=== PATIENT | male | born 1955 | race Caucasian/White ===

== ENCOUNTER 2018-03-06 11:39 | Day surgery (SDC) | payer BC ==
[2018-03-06] MEDS ORDERED: Lactated Ringers 1,000 ML IV SCH (12:00)
[2018-03-06] MEDS ORDERED: Sodium Chloride 0.9% 10 ML Syringe FLUSH PRN (12:00)
[2018-03-06] MEDS ORDERED: Propofol 200 MG/20 ML SDV ONE ×2 (13:15→13:17)
[2018-03-06] MEDS ORDERED: Midazolam 1 MG/ML 2 ML SDV ONE ×2 (13:15→13:17)
[2018-03-06] MEDS ORDERED: fentaNYL 100 MCG/2 ML SDV ONE ×2 (13:15→13:17)
--- NOTE | 2018-03-06 13:25 | PCM.PN ---
- General Info Date of Service: 03/06/18 - Review of Systems Systems Review Comment:: 62-year-old male with a history of colon polyps here for colonoscopy. He is medically stable to proceed today. His recent history and physical is reviewed and no significant changes are noted. I discussed the proposed colonoscopy with the patient. Risks such as but not limited to bleeding and GI injury or reviewed. He appears to understand and agrees to proceed. - Patient Data Vitals - Most Recent: Last Vital Signs Temp 97.7 F 03/06/18 12:09 Pulse 79 03/06/18 12:09 Resp 20 03/06/18 12:09 BP 149/79 H 03/06/18 12:09 Pulse Ox 98 03/06/18 12:09 Weight - Most Recent: 86.183 kg Med Orders - Current: Current Medications Lactated Ringer's (Ringers, Lactated) 1,000 mls @ 125 mls/hr IV ASDIRECTED MOSHE Last Admin: 03/06/18 12:34 Dose: 125 mls/hr Sodium Chloride (Saline Flush) 10 ml FLUSH ASDIRECTED PRN PRN Reason: Keep Vein Open Discontinued Medications Fentanyl (Sublimaze) Confirm Administered Dose 100 mcg .ROUTE .STK-MED ONE Stop: 03/06/18 13:16 Midazolam HCl (Versed 1 Mg/Ml) Confirm Administered Dose 2 mg .ROUTE .STK-MED ONE Stop: 03/06/18 13:16 Propofol (Diprivan 20 Ml) Confirm Administered Dose 200 mg .ROUTE .STK-MED ONE Stop: 03/06/18 13:16 - Problem List Review Problem List Initiated/Reviewed/Updated: Yes - My Orders Last 24 Hours: My Active Orders 03/06/18 12:00 Patient Status [ADT] Routine Peripheral IV Care [RC] . DIRECTED Verify Patient Consent Obtain [RC] ASDIRECTED Lactated Ringers [Ringers, Lactated] 1,000 ml IV ASDIRECTED Sodium Chloride 0.9% [Saline Flush] 10 ml FLUSH ASDIRECTED PRN Peripheral IV Insertion Adult [OM.PC] Routine 03/06/18 Breakfast Nothing Per Oral Diet [DIET] - Assessment Assessment:: history of colon polyps - Plan Plan:: colonoscopy
--- NOTE | 2018-03-06 14:02 | PCM.OPNOTE ---
- General Post-Op/Procedure Note Date of Surgery/Procedure: 03/06/18 Operative Procedure(s): Colonoscopy with polypectomy Findings: Multiple small colon polyps Moderate Sigmoid Diverticulosis Pre Op Diagnosis: History of colon polyps Post-Op Diagnosis: Colon Polyps. Diverticulosis of Sigmoid Colon Anesthesia Technique: MAC Primary Surgeon: Silvio Ureña Pathology: Colon Polyps Output, Urine Amount: 0 EBL in mLs: 0 Complications: None Condition: Good Free Text/Narrative:: Intake & Output 03/05/18 03/06/18 03/06/18 22:59 06:59 14:59 Intake Total 600 Balance 600
[2018-03-06 15:22] VITALS: BP 151/74
--- NOTE | 2018-03-07 09:42 | OR ---
Date of Procedure: 03/06/2018 REFERRING PROVIDER: Malvin Jarvis PA-C PREOPERATIVE DIAGNOSIS: History of colon polyps. POSTOPERATIVE DIAGNOSES: Colon polyps and diverticulosis of the sigmoid colon. OPERATIONS PERFORMED: Colonoscopy with polypectomy. INDICATIONS FOR SURGERY: This 62-year-old male has a known history of colon polyps. He comes today for surveillance colonoscopy. FINDINGS: Three polyps were noted on today's exam. There was a 4-mm polyp in the sigmoid colon, 15 cm from the anal verge; a 5-mm polyp in the sigmoid colon, 30 cm from the anal verge; a 7-mm polyp in the ascending colon. All of these polyps were sessile in configuration. The patient also has a moderate degree of sigmoid diverticulosis. This does not appear to be acutely inflamed, otherwise complicated. The colon otherwise appeared normal. DESCRIPTION OF PROCEDURE: The patient was taken to the operating room. He was given intravenous sedation, and with him in the left lateral decubitus position, digital rectal exam was performed showing no rectal masses. The Olympus colonoscope was inserted into the rectum. Retroflexed examination of the rectal canal was performed. The scope was then carefully advanced under direct visualization through the entire length of the colon until the cecum was reached. During insertion of the scope, the above-described 3 polyps are identified, and as encountered, there were each in turn removed with a cautery snare and retrieved. The scope was advanced to the cecum and cecal acquisition was confirmed by noting the normal internal cecal anatomy including the appendiceal orifice and ileocecal valve. The light was also noted to transilluminate the abdominal wall in the right lower quadrant. After examining the cecum, the scope was slowly withdrawn sequentially re-examining the colonic segments until the entire colon and rectum had been fully examined. The scope was removed and the patient was taken from the operating room in satisfactory condition. ESTIMATED BLOOD LOSS: Zero. COMPLICATIONS: None. PROGNOSIS: Good. KENNETH Ureña MD /[id number]
== END 2018-03-06 15:07 | disposition home or self-care (01) ==
LOC: LL.SDS 11:39
PROVIDERS: ATTEND Surgery
DX: Z12.11 Encounter for screening for malignant neoplasm of colon (principal); D12.2 Benign neoplasm of ascending colon; D12.5 Benign neoplasm of sigmoid colon; K63.5 Polyp of colon; K57.30 Diverticulosis of large intestine without perforation or abscess without bleeding; J45.909 Unspecified asthma, uncomplicated; E78.5 Hyperlipidemia, unspecified; N52.9 Male erectile dysfunction, unspecified; I10 Essential (primary) hypertension; I27.20 Pulmonary hypertension, unspecified; E78.00 Pure hypercholesterolemia, unspecified; E03.9 Hypothyroidism, unspecified; M19.90 Unspecified osteoarthritis, unspecified site; Z79.899 Other long term (current) drug therapy; Z88.1 Allergy status to other antibiotic agents; Z88.8 Allergy status to other drugs, medicaments and biological substances; Z86.010 Personal history of colon polyps; Z87.891 Personal history of nicotine dependence
CPT/HCPCS: J2250; J2704; J3010; J7120

== ENCOUNTER 2021-04-06 07:55 | Day surgery (SDC) | payer BC ==
[2021-04-06] MEDS ORDERED: Sodium Chloride 0.9% 10 ML Syringe FLUSH PRN (08:00)
[2021-04-06] MEDS ORDERED: Lactated Ringers 1,000 ML IV SCH (08:00)
[2021-04-06] MEDS ORDERED: Propofol 200 MG/20 ML SDV ONE ×2 (08:39→09:26)
[2021-04-06] MEDS ORDERED: Midazolam 1 MG/ML 2 ML SDV ONE ×3 (08:39→09:57)
--- NOTE | 2021-04-06 09:49 | PCM.HPR ---
H & P Addendum review - H & P Addendum Review Date of Original H & P: 03/15/21 Date Reviewed: 04/06/21 Time Reviewed: 09:20 Patient was Examined: No Changes
--- NOTE | 2021-04-06 09:50 | PCM.OPNOTE ---
- General Post-Op/Procedure Note Date of Surgery/Procedure: 04/06/21 Operative Procedure(s): Colonoscopy Findings: sig tics Pre Op Diagnosis: Hx Polyps Post-Op Diagnosis: Same Anesthesia Technique: MAC Primary Surgeon: Luis Carlos Malhotra Anesthesia Provider: Arminda Mccracken Complications: None Condition: Good
[2021-04-06 12:50] VITALS: BP 120/75; PULSE 78
--- NOTE | 2021-04-07 10:57 | OR ---
Date of Procedure: PREOPERATIVE DIAGNOSES: 1. History of colon polyps. 2. Sigmoid diverticulosis. POSTOPERATIVE DIAGNOSIS: Sigmoid diverticulosis. PROCEDURE: Colonoscopy. ANESTHESIA: IV sedation. PROCEDURE IN DETAIL: Patient was brought to the procedure room where he was placed on his left side and IV sedation administered. Digital rectal exam was performed, which was normal. Colonoscope was inserted and advanced to the level of the cecum without difficulty. Cecal position was confirmed by identifying the appendiceal lumen and ileocecal valve. Prep was good and surfaces were well visualized. Upon withdrawing the scope, the ascending, transverse, and descending colon were normal in appearance. Sigmoid colon had multiple diverticula present. Rectum was normal and retroflexion was normal. Air was removed and the scope withdrawn. Patient tolerated the procedure well and returned to recovery in stable condition. Recommend surveillance colonoscopy again in 5 years. KENNETH CONNER MD /[id number]
== END 2021-04-06 11:10 | disposition home or self-care (01) ==
LOC: LL.SDS 07:55
PROVIDERS: ATTEND Surgery
DX: D12.6 Benign neoplasm of colon, unspecified (principal); K57.30 Diverticulosis of large intestine without perforation or abscess without bleeding; J45.909 Unspecified asthma, uncomplicated; E11.9 Type 2 diabetes mellitus without complications; I10 Essential (primary) hypertension; E78.00 Pure hypercholesterolemia, unspecified; E03.9 Hypothyroidism, unspecified; F17.210 Nicotine dependence, cigarettes, uncomplicated; L30.9 Dermatitis, unspecified; J44.9 Chronic obstructive pulmonary disease, unspecified; Z86.010 Personal history of colon polyps; Z90.49 Acquired absence of other specified parts of digestive tract; Z98.890 Other specified postprocedural states; Z79.899 Other long term (current) drug therapy; Z88.8 Allergy status to other drugs, medicaments and biological substances; Z88.1 Allergy status to other antibiotic agents; Z79.890 Hormone replacement therapy
CPT/HCPCS: 00812; 82947; J2250; J2704; J7120

== ENCOUNTER 2021-08-01 13:08 | Emergency (ER) | payer BC ==
[2021-08-01 14:28] LABS: CORONAVIRUS COVID-19 NAA NEGATIVE (NEGATIVE); RESPIRATORY SYNCYTIAL VIR NAA NEGATIVE (NEGATIVE)
[2021-08-01 14:32] LABS: ANION GAP 12.5 meq/L (7-15); CHLORIDE,CL 90 mmol/L (98-107); SODIUM,NA 127 mmol/L (136-145)
[2021-08-01 15:30] LABS: BARBITURATE SCREEN,URINE NEGATIVE (NEGATIVE); BENZODIAZEPINES SCREEN,URINE NEGATIVE (NEGATIVE); EDDP,URINE SCREEN NEGATIVE (NEGATIVE); TCA SCREEN,URINE NEGATIVE (NEGATIVE); THC SCREEN,URINE 50 NG/ML POSITIVE (NEGATIVE)
[2021-08-01 15:39] LABS: BUPRENORPHINE SCREEN,URINE NEGATIVE (NEGATIVE)
[2021-08-01 16:06] VITALS: BP 147/70; PULSE 86
== END 2021-08-01 16:35 ==
LOC: LL.ED 13:08
DX: E87.1 Hypo-osmolality and hyponatremia (principal); E03.9 Hypothyroidism, unspecified; R47.89 Other speech disturbances; E78.00 Pure hypercholesterolemia, unspecified; I10 Essential (primary) hypertension; J44.9 Chronic obstructive pulmonary disease, unspecified; E11.9 Type 2 diabetes mellitus without complications; F17.210 Nicotine dependence, cigarettes, uncomplicated; Z91.048 Other nonmedicinal substance allergy status; Z88.8 Allergy status to other drugs, medicaments and biological substances; Z88.1 Allergy status to other antibiotic agents; Z79.82 Long term (current) use of aspirin; Z79.899 Other long term (current) drug therapy; Z20.822 Contact with and (suspected) exposure to COVID-19
CPT/HCPCS: 0241U; 36415; 70450; 71046; 80053; 80305-QW; 80307; 81001; 82140; 83605; 83735; 83880; 84443; 84484; 85025; 85379; 93005; 99285-25

== ENCOUNTER 2022-07-02 09:13 | Inpatient (IN) | payer BC, MEDICARE ==
[2022-07-02 10:21] LABS: CHLORIDE,CL 94 mmol/L (98-107); SODIUM,NA 128 mmol/L (136-145)
[2022-07-02 10:23] LABS: ESTIMATED GFR 102 mL/min (>=60)
[2022-07-02] MEDS: HYDROmorphone 0.5 MG/0.5 ML Syringe IVPUSH PRN ×3 (10:36→21:17)
[2022-07-02] MEDS ORDERED: Albuterol 6.7 GM Inhaler INH PRN (11:23)
[2022-07-02] MEDS ORDERED: Albuterol 0.083% 2.5 MG/3 ML Neb Soln INH PRN (11:23)
[2022-07-02] MEDS ORDERED: BETAMETHASONE DIPROPIONATE TOP PRN (11:25)
[2022-07-02] MEDS ORDERED: Clotrimazole 1% Crm 30 GM Tube TOP PRN (11:25)
[2022-07-02] MEDS: Sodium Chloride 0.9% 10 ML Syringe FLUSH PRN ×2 (13:03→14:33)
[2022-07-02] MEDS: Nicotine 14 MG/24 Hr Patch TRDERM SCH (13:03)
[2022-07-02] MEDS: Apixaban 5 MG Tab PO SCH (18:21)
[2022-07-02] MEDS: Montelukast 10 MG Tab PO SCH (21:11)
[2022-07-02] MEDS: atorvaSTATin 10 MG Tab PO SCH (21:11)
[2022-07-02] MEDS: Formoterol/Mometasone 100-5 MCG 8.8 GM Inhaler IH SCH (21:12)
[2022-07-03] MEDS ORDERED: LORazepam 2 MG/ML SDV IVPUSH ONE (06:03)
[2022-07-03] MEDS: amLODIPine 5 MG Tab PO SCH (08:28)
[2022-07-03] MEDS: Apixaban 5 MG Tab PO SCH ×2 (08:28→17:30)
[2022-07-03] MEDS: Lisinopril 20 MG Tab PO SCH (08:28)
[2022-07-03] MEDS: Folic Acid 1 MG Tab PO SCH (08:28)
[2022-07-03] MEDS: Cholecalciferol (Vitamin D3) 25 MCG Tab PO SCH (08:29)
[2022-07-03] MEDS: Multivitamin Tab PO SCH (08:29)
[2022-07-03] MEDS: Nicotine 14 MG/24 Hr Patch TRDERM SCH (08:30)
[2022-07-03] MEDS: Formoterol/Mometasone 100-5 MCG 8.8 GM Inhaler IH SCH ×2 (08:33→20:00)
[2022-07-03] MEDS ORDERED: GUSELKUMAB 100 MG/ML SUBCUT SCH (11:30)
[2022-07-03] MEDS: atorvaSTATin 10 MG Tab PO SCH (19:58)
[2022-07-03] MEDS: Montelukast 10 MG Tab PO SCH (19:58)
[2022-07-03] MEDS ORDERED: diphenhydrAMINE 50 MG/ML SDV IVPUSH PRN (20:52)
[2022-07-03] MEDS: HYDROmorphone 0.5 MG/0.5 ML Syringe IVPUSH PRN (21:06)
[2022-07-03] MEDS ORDERED: Nicotine 14 MG/24 Hr Patch TRDERM ONE (22:01)
[2022-07-04] MEDS ORDERED: methylPREDNISolone Sodium Succinate 125 MG/2 ML SDV IVPUSH ONE (00:11)
[2022-07-04] MEDS: Acetaminophen/HYDROcodone 325-10 MG Tab PO PRN ×2 (00:19→17:56)
[2022-07-04] MEDS: hydrOXYzine Pamoate 25 MG Cap PO PRN (04:33)
[2022-07-04] MEDS: HYDROmorphone 0.5 MG/0.5 ML Syringe IVPUSH PRN (04:34)
[2022-07-04] MEDS: Apixaban 5 MG Tab PO SCH ×2 (09:33→17:57)
[2022-07-04] MEDS: Multivitamin Tab PO SCH (09:33)
[2022-07-04] MEDS: Cholecalciferol (Vitamin D3) 25 MCG Tab PO SCH (09:34)
[2022-07-04] MEDS: Folic Acid 1 MG Tab PO SCH (09:34)
[2022-07-04] MEDS: Nicotine 14 MG/24 Hr Patch TRDERM SCH (09:35)
[2022-07-04] MEDS: Formoterol/Mometasone 100-5 MCG 8.8 GM Inhaler IH SCH ×3 (09:35→19:23)
[2022-07-04] MEDS: Lisinopril 20 MG Tab PO SCH (09:39)
[2022-07-04] MEDS: amLODIPine 5 MG Tab PO SCH (09:39)
[2022-07-04] MEDS ORDERED: Sodium Chloride 0.9% 1,000 ML IV SCH (15:30)
[2022-07-04] MEDS ORDERED: cefTRIAXone 1 GM in Sodium Chloride 0.9% 100 ML IV SCH (16:00)
[2022-07-04] MEDS: Sodium Chloride 0.9% 10 ML Syringe FLUSH PRN (16:28)
[2022-07-04] MEDS: Montelukast 10 MG Tab PO SCH (19:19)
[2022-07-04] MEDS: atorvaSTATin 10 MG Tab PO SCH (19:19)
[2022-07-05] MEDS: hydrOXYzine Pamoate 25 MG Cap PO PRN (01:39)
[2022-07-05] MEDS ORDERED: Gabapentin 300 MG Cap PO SCH ×2 (03:52→08:00)
[2022-07-05] MEDS: Acetaminophen/HYDROcodone 325-10 MG Tab PO PRN ×2 (06:03)
[2022-07-05] MEDS ORDERED: hydrOXYzine Pamoate 25 MG Cap PO SCH (08:00)
[2022-07-05 08:02] VITALS: BP 144/71; PULSE 72
[2022-07-05] MEDS: Multivitamin Tab PO SCH (08:04)
[2022-07-05] MEDS: Cholecalciferol (Vitamin D3) 25 MCG Tab PO SCH (08:05)
[2022-07-05] MEDS: amLODIPine 5 MG Tab PO SCH (08:05)
[2022-07-05] MEDS: Gabapentin 300 MG Cap PO SCH ×2 (08:05→12:49)
[2022-07-05] MEDS: Folic Acid 1 MG Tab PO SCH (08:06)
[2022-07-05] MEDS: Apixaban 5 MG Tab PO SCH (08:07)
[2022-07-05] MEDS: Formoterol/Mometasone 100-5 MCG 8.8 GM Inhaler IH SCH (08:07)
[2022-07-05] MEDS: Nicotine 14 MG/24 Hr Patch TRDERM SCH (08:08)
[2022-07-05] MEDS: Lisinopril 20 MG Tab PO SCH (08:12)
[2022-07-05] MEDS ORDERED: cefTRIAXone 1 GM in Sodium Chloride 0.9% 100 ML IV SCH (10:30)
== END 2022-07-05 14:05 | disposition home or self-care (01) | DRG 383 ==
LOC: LL.ED 09:13 → LL.MS 10:33
PROVIDERS: ADMIT Emergency Medicine; ATTEND Family Medicine
DX: L03.116 Cellulitis of left lower limb (principal); L03.031 Cellulitis of right toe; L03.032 Cellulitis of left toe; L03.115 Cellulitis of right lower limb; H54.7 Unspecified visual loss; H91.93 Unspecified hearing loss, bilateral; E78.00 Pure hypercholesterolemia, unspecified; K57.90 Diverticulosis of intestine, part unspecified, without perforation or abscess without bleeding; N52.9 Male erectile dysfunction, unspecified; E03.9 Hypothyroidism, unspecified; E11.9 Type 2 diabetes mellitus without complications; Z90.49 Acquired absence of other specified parts of digestive tract; Z88.1 Allergy status to other antibiotic agents; Z91.09 Other allergy status, other than to drugs and biological substances; Z88.8 Allergy status to other drugs, medicaments and biological substances; Z88.2 Allergy status to sulfonamides; Z79.890 Hormone replacement therapy; Z79.52 Long term (current) use of systemic steroids; Z79.899 Other long term (current) drug therapy
CPT/HCPCS: 36415; 80053; 80202; 83605; 85025; 87040; 94640; 99284; A9270-GY; J0696; J1170; J1200; J2060; J3370; J3490; J7050; Q0177

== ENCOUNTER 2022-07-09 11:25 | Emergency (ER) | payer BC, MEDICARE ==
[2022-07-09] MEDS: HYDROmorphone 1 MG/ML Syringe IVPUSH PRN (12:34)
[2022-07-09] MEDS: Sodium Chloride 0.9% 1,000 ML IV SCH (12:36)
[2022-07-09] MEDS: Sodium Chloride 0.9% 10 ML Syringe FLUSH PRN (12:40)
[2022-07-09 12:46] LABS: ANION GAP 16.1 meq/L (7-15); CHLORIDE,CL 94 mmol/L (98-107); ESTIMATED GFR 105 mL/min (>=60); SODIUM,NA 132 mmol/L (136-145)
[2022-07-09 14:29] VITALS: BP 132/68; PULSE 94
== END 2022-07-09 15:40 | disposition home or self-care (01) ==
LOC: LL.ED 11:25
DX: L03.116 Cellulitis of left lower limb (principal); L03.115 Cellulitis of right lower limb; E78.00 Pure hypercholesterolemia, unspecified; I10 Essential (primary) hypertension; J44.9 Chronic obstructive pulmonary disease, unspecified; E11.9 Type 2 diabetes mellitus without complications; E03.9 Hypothyroidism, unspecified; Z88.1 Allergy status to other antibiotic agents; Z91.048 Other nonmedicinal substance allergy status; Z88.8 Allergy status to other drugs, medicaments and biological substances; Z88.2 Allergy status to sulfonamides; Z79.899 Other long term (current) drug therapy; Z79.01 Long term (current) use of anticoagulants
CPT/HCPCS: 36415; 80053; 83605; 85025; 87040; 96374; 99283-25; J1170; J3490; J7030

== ENCOUNTER 2022-11-03 08:25 | Inpatient (IN) | payer BC, MEDICARE ==
[2022-11-03] MEDS ORDERED: Sodium Chloride 0.9% 1,000 ML IV ONE (08:57)
[2022-11-03 09:14] LABS: BASOPHILS ABSOLUTE AUTO 0.01 K/uL (0.00-0.20); BASOPHILS PERCENT AUTO 0.1 % (0.0-2.0); HEMATOCRIT 39.2 % (39.0-49.0); HEMOGLOBIN 12.6 g/dL (13.1-16.8); LYMPHOCYTES ABSOLUTE AUTO 2.39 K/uL (0.50-3.50); LYMPHOCYTES PERCENT AUTO 15.2 % (10.0-50.0); MEAN CORPUSCULAR HEMOGLOBIN 25.6 pg (28.2-33.3); MEAN CORPUSCULAR HGB CONC 32.1 g/dL (31.7-36.0); MEAN CORPUSCULAR VOLUME 79.5 fL (84.0-98.0); MONOCYTES ABSOLUTE AUTO 1.56 K/uL (0.00-1.00); MONOCYTES PERCENT AUTO 9.9 % (2.0-14.0); NEUTROPHILS ABSOLUTE AUTO 11.78 K/uL (1.40-7.00); NEUTROPHILS PERCENT AUTO 74.8 % (45.0-80.0); PLATELET COUNT,PLT 552 K/uL (150-350); RED BLOOD CELL COUNT 4.93 M/uL (4.33-5.41); RED CELL DISTRIBUTION WIDTH 17.2 % (11.2-14.1); WHITE BLOOD CELL COUNT,WBC 15.7 K/uL (4.0-10.2)
[2022-11-03] MEDS ORDERED: Albuterol/Ipratropium 3.0-0.5 MG/3 ML Neb Soln NEB ONE (09:16)
[2022-11-03] MEDS ORDERED: Diltiazem 25 MG/5 ML SDV IVPUSH ONE ×3 (09:17→23:24)
[2022-11-03] MEDS: Ondansetron 4 MG/2 ML SDV IVPUSH PRN (09:20)
[2022-11-03] MEDS: Sodium Chloride 0.9% 10 ML Syringe FLUSH PRN ×2 (09:24→14:10)
[2022-11-03 09:41] LABS: ALBUMIN 3.9 g/dL (3.4-5.0); ANION GAP 12.1 meq/L (7-15); BILIRUBIN TOTAL 0.2 mg/dL (0.2-1.0); CALCIUM 9.5 mg/dL (8.5-10.1); CARBON DIOXIDE,CO2 31.6 mmol/L (21.0-32.0); CREATININE 0.76 mg/dL (0.51-1.17); EST CRCL DRUG DOSING (CG) 92.5 mL/min; POTASSIUM,K 3.7 mmol/L (3.5-5.1); PROTEIN TOTAL,TP 8.2 g/dL (6.4-8.2)
[2022-11-03 09:51] LABS: CORONAVIRUS COVID-19 NAA NEGATIVE (NEGATIVE); INFLUENZA A NAA NEGATIVE (NEGATIVE); INFLUENZA B NAA NEGATIVE (NEGATIVE); RESPIRATORY SYNCYTIAL VIR NAA NEGATIVE (NEGATIVE)
[2022-11-03 10:54] LABS: APPEARANCE,URINE CLOUDY; BILIRUBIN,URINE NEGATIVE (NEGATIVE); COLOR,URINE LIGHT YELLOW; GLUCOSE,URINE NEGATIVE (NEGATIVE); KETONES,URINE NEGATIVE (NEGATIVE); LEUKOCYTE ESTERASE,URINE NEGATIVE (NEGATIVE); NITRITE,URINE NEGATIVE (NEGATIVE); OCCULT BLOOD,URINE NEGATIVE (NEGATIVE); PH,URINE 7.5 (5.0-9.0); PROTEIN,URINE 100 mg/dL (NEGATIVE); UROBILINOGEN,URINE 0.2 E.U./dL (0.2-1.0)
[2022-11-03] MEDS ORDERED: LORazepam 0.5 MG Tab PO PRN (10:57)
[2022-11-03] MEDS ORDERED: Sodium Chloride 0.9% 1,000 ML IV SCH (11:00)
[2022-11-03] MEDS ORDERED: Piperacillin/Tazobactam 3.375 GM in Sodium Chloride 0.9% 100 ML IV ONE (11:00)
[2022-11-03] MEDS ORDERED: Clotrimazole 1% Crm 30 GM Tube TOP PRN (11:01)
[2022-11-03] MEDS ORDERED: BETAMETHASONE DIPROPIONATE TOP PRN (11:01)
[2022-11-03] MEDS ORDERED: Acetaminophen/HYDROcodone 325-10 MG Tab PO PRN (11:01)
[2022-11-03] MEDS ORDERED: Albuterol 0.083% 2.5 MG/3 ML Neb Soln INH PRN (11:01)
[2022-11-03] MEDS ORDERED: hydrOXYzine Pamoate 25 MG Cap PO PRN (11:01)
[2022-11-03 11:02] LABS: AMORPHOUS SEDIMENT,URINE MANY /HPF (0/HPF); BACTERIA,URINE NOT SEEN /HPF (NONE TO FEW); EPITHELIAL CELLS,URINE RARE /LPF; RBC,URINE 0-5 /HPF; WBC,URINE 0-5 /HPF
[2022-11-03] MEDS ORDERED: GUSELKUMAB 100 MG/ML SUBCUT SCH (11:15)
[2022-11-03] MEDS: Piperacillin/Tazobactam 3.375 GM in Sodium Chloride 0.9% 100 ML IV SCH ×3 (11:42→23:17)
[2022-11-03] MEDS ORDERED: VANCOmycin 1.5 GM/300 ML 1.5 GM in Premix Bag 1 BAG IV ONE (12:00)
[2022-11-03] MEDS ORDERED: Albuterol 6.7 GM Inhaler INH PRN (12:11)
[2022-11-03] MEDS: Nicotine 14 MG/24 Hr Patch TRDERM SCH (12:20)
[2022-11-03] MEDS: Gabapentin 300 MG Cap PO SCH ×2 (12:20→17:19)
[2022-11-03] MEDS: Albuterol/Ipratropium 3.0-0.5 MG/3 ML Neb Soln NEB SCH (16:52)
[2022-11-03] MEDS: Apixaban 5 MG Tab PO SCH (17:19)
[2022-11-03] MEDS: Montelukast 10 MG Tab PO SCH (19:48)
[2022-11-03] MEDS ORDERED: Non-Formulary Medication 1 Each (Simvastatin [Simvastatin] 20 MG Tablet) PO SCH (20:00)
[2022-11-04] MEDS: Albuterol/Ipratropium 3.0-0.5 MG/3 ML Neb Soln NEB SCH ×4 (01:00→22:15)
[2022-11-04] MEDS: Sodium Chloride 0.9% 10 ML Syringe FLUSH PRN ×6 (05:32→22:19)
[2022-11-04] MEDS: Piperacillin/Tazobactam 3.375 GM in Sodium Chloride 0.9% 100 ML IV SCH ×4 (05:32→22:15)
[2022-11-04] MEDS: Gabapentin 300 MG Cap PO SCH ×3 (07:57→17:24)
[2022-11-04] MEDS: Apixaban 5 MG Tab PO SCH ×2 (07:57→17:23)
[2022-11-04] MEDS: Lisinopril 20 MG Tab PO SCH (07:58)
[2022-11-04] MEDS: predniSONE 20 MG Tab PO SCH (07:58)
[2022-11-04] MEDS: Metoprolol Succinate 25 MG Tab.ER PO SCH (07:59)
[2022-11-04] MEDS: amLODIPine 5 MG Tab PO SCH (08:00)
[2022-11-04] MEDS: Multivitamin Tab PO SCH (08:00)
[2022-11-04] MEDS ORDERED: ACITRETIN 25 MG PO SCH (08:00)
[2022-11-04] MEDS ORDERED: Non-Formulary Medication 1 Each (Fluticasone/Vilanterol 1 EACH Each) INH SCH (08:00)
[2022-11-04] MEDS ORDERED: Non-Formulary Medication 1 Each (Ubidecarenone [Co Q-10] 200 MG Capsule) PO SCH (08:00)
[2022-11-04] MEDS: Folic Acid 1 MG Tab PO SCH (08:00)
[2022-11-04] MEDS: Cholecalciferol (Vitamin D3) 25 MCG Tab PO SCH (08:01)
[2022-11-04] MEDS: Nicotine 14 MG/24 Hr Patch TRDERM SCH (08:02)
[2022-11-04] MEDS: Furosemide 20 MG Tab PO SCH (08:02)
[2022-11-04] MEDS: Formoterol/Mometasone 200-5 MCG 8.8 GM Inhaler IH SCH ×2 (08:04→17:24)
[2022-11-04 08:32] LABS: BASOPHILS ABSOLUTE AUTO 0.02 K/uL (0.00-0.20); BASOPHILS PERCENT AUTO 0.1 % (0.0-2.0); EOSINOPHILS ABSOLUTE AUTO 0.03 K/uL (0.00-0.50); EOSINOPHILS PERCENT AUTO 0.2 % (0.0-5.0); HEMATOCRIT 34.5 % (39.0-49.0); LYMPHOCYTES PERCENT AUTO 13.8 % (10.0-50.0); MEAN CORPUSCULAR HEMOGLOBIN 25.8 pg (28.2-33.3); MEAN CORPUSCULAR HGB CONC 31.9 g/dL (31.7-36.0); MONOCYTES PERCENT AUTO 11.2 % (2.0-14.0); NEUTROPHILS ABSOLUTE AUTO 12.96 K/uL (1.40-7.00); NEUTROPHILS PERCENT AUTO 74.7 % (45.0-80.0); PLATELET COUNT,PLT 508 K/uL (150-350); RED BLOOD CELL COUNT 4.26 M/uL (4.33-5.41); WHITE BLOOD CELL COUNT,WBC 17.4 K/uL (4.0-10.2)
[2022-11-04 08:36] LABS: MONOCYTES ABSOLUTE AUTO 1.95 K/uL (0.00-1.00)
[2022-11-04] MEDS: Montelukast 10 MG Tab PO SCH (20:03)
[2022-11-05] MEDS: Albuterol/Ipratropium 3.0-0.5 MG/3 ML Neb Soln NEB SCH ×3 (01:19→16:08)
[2022-11-05] MEDS: Sodium Chloride 0.9% 10 ML Syringe FLUSH PRN ×2 (04:42→08:46)
[2022-11-05] MEDS: Piperacillin/Tazobactam 3.375 GM in Sodium Chloride 0.9% 100 ML IV SCH ×4 (04:42→20:56)
[2022-11-05] MEDS: Ondansetron 4 MG/2 ML SDV IVPUSH PRN ×3 (08:45→18:08)
[2022-11-05] MEDS: Formoterol/Mometasone 200-5 MCG 8.8 GM Inhaler IH SCH ×2 (08:46→18:05)
[2022-11-05] MEDS ORDERED: VANCOmycin 1.5 GM/300 ML 1.5 GM in Premix Bag 1 BAG IV SCH (09:00)
[2022-11-05] MEDS ORDERED: Glycerin 5.4 GM/7.5 ML Suppository RECTAL ONE (09:34)
[2022-11-05] MEDS ORDERED: Polyethylene Glycol 3350 Powder 17 GM Packet PO PRN (09:35)
[2022-11-05] MEDS: Gabapentin 300 MG Cap PO SCH ×4 (10:00→18:05)
[2022-11-05] MEDS: Nicotine 14 MG/24 Hr Patch TRDERM SCH (12:00)
[2022-11-05 13:35] LABS: HEMATOCRIT 37.5 % (39.0-49.0); MEAN CORPUSCULAR HEMOGLOBIN 25.4 pg (28.2-33.3); MEAN CORPUSCULAR VOLUME 79.4 fL (84.0-98.0); PLATELET COUNT,PLT 499 K/uL (150-350); RED BLOOD CELL COUNT 4.72 M/uL (4.33-5.41); RED CELL DISTRIBUTION WIDTH 16.6 % (11.2-14.1); WHITE BLOOD CELL COUNT,WBC 14.4 K/uL (4.0-10.2)
[2022-11-05 13:47] LABS: C-REACTIVE PROTEIN 3.3 mg/dL (<=0.9); CALCIUM 8.2 mg/dL (8.5-10.1); CARBON DIOXIDE,CO2 32.7 mmol/L (21.0-32.0); CREATININE 0.63 mg/dL (0.51-1.17); EST CRCL DRUG DOSING (CG) 111.59 mL/min; POTASSIUM,K 3.2 mmol/L (3.5-5.1)
[2022-11-05 14:02] LABS: ANION GAP 9.5 meq/L (7-15)
[2022-11-05] MEDS ORDERED: Diatrizoate Meglumine/Diatrizoate Sodium 37% 30 ML Bottle PO ONE (15:30)
[2022-11-05] MEDS ORDERED: Iopamidol 612 MG/ML 100 ML Bottle IVPUSH ONE (15:30)
[2022-11-05] MEDS: Cholecalciferol (Vitamin D3) 25 MCG Tab PO SCH (16:01)
[2022-11-05] MEDS: Furosemide 20 MG Tab PO SCH (16:02)
[2022-11-05] MEDS: Lisinopril 20 MG Tab PO SCH (16:03)
[2022-11-05] MEDS: Metoprolol Succinate 25 MG Tab.ER PO SCH (16:04)
[2022-11-05] MEDS: Folic Acid 1 MG Tab PO SCH (16:04)
[2022-11-05] MEDS: Multivitamin Tab PO SCH (16:05)
[2022-11-05] MEDS: amLODIPine 5 MG Tab PO SCH (16:05)
[2022-11-05] MEDS: predniSONE 20 MG Tab PO SCH (16:06)
[2022-11-05] MEDS: Apixaban 5 MG Tab PO SCH ×2 (16:14→18:02)
[2022-11-05] MEDS: Potassium Chloride 20 MEQ Tab.ER PO SCH (18:03)
[2022-11-05] MEDS: Montelukast 10 MG Tab PO SCH (20:57)
[2022-11-06] MEDS: Albuterol/Ipratropium 3.0-0.5 MG/3 ML Neb Soln NEB SCH ×2 (01:40→07:47)
[2022-11-06] MEDS: Piperacillin/Tazobactam 3.375 GM in Sodium Chloride 0.9% 100 ML IV SCH ×2 (02:17→08:26)
[2022-11-06] MEDS: Sodium Chloride 0.9% 10 ML Syringe FLUSH PRN ×2 (02:54→08:28)
[2022-11-06] MEDS: Formoterol/Mometasone 200-5 MCG 8.8 GM Inhaler IH SCH (07:42)
[2022-11-06] MEDS: Potassium Chloride 20 MEQ Tab.ER PO SCH (07:43)
[2022-11-06] MEDS: Cholecalciferol (Vitamin D3) 25 MCG Tab PO SCH (07:44)
[2022-11-06] MEDS: Lisinopril 20 MG Tab PO SCH (07:45)
[2022-11-06] MEDS: Apixaban 5 MG Tab PO SCH (07:45)
[2022-11-06] MEDS: Gabapentin 300 MG Cap PO SCH (07:45)
[2022-11-06] MEDS: Folic Acid 1 MG Tab PO SCH (07:45)
[2022-11-06] MEDS: amLODIPine 5 MG Tab PO SCH (07:45)
[2022-11-06] MEDS: Metoprolol Succinate 25 MG Tab.ER PO SCH (07:46)
[2022-11-06] MEDS: Multivitamin Tab PO SCH (07:46)
[2022-11-06] MEDS: Furosemide 20 MG Tab PO SCH (07:46)
[2022-11-06] MEDS: Nicotine 14 MG/24 Hr Patch TRDERM SCH (07:47)
[2022-11-06] MEDS: predniSONE 20 MG Tab PO SCH (07:47)
[2022-11-06 07:52] LABS: HEMATOCRIT 39.6 % (39.0-49.0); HEMOGLOBIN 12.6 g/dL (13.1-16.8); MEAN CORPUSCULAR HEMOGLOBIN 25.1 pg (28.2-33.3); MEAN CORPUSCULAR HGB CONC 31.8 g/dL (31.7-36.0); MEAN CORPUSCULAR VOLUME 78.9 fL (84.0-98.0); PLATELET COUNT,PLT 562 K/uL (150-350); RED BLOOD CELL COUNT 5.02 M/uL (4.33-5.41); RED CELL DISTRIBUTION WIDTH 16.6 % (11.2-14.1); WHITE BLOOD CELL COUNT,WBC 10.2 K/uL (4.0-10.2)
[2022-11-06 08:11] LABS: CALCIUM 8.7 mg/dL (8.5-10.1); CARBON DIOXIDE,CO2 30.5 mmol/L (21.0-32.0); CREATININE 0.98 mg/dL (0.51-1.17); EST CRCL DRUG DOSING (CG) 71.73 mL/min; POTASSIUM,K 3.8 mmol/L (3.5-5.1)
[2022-11-06 08:17] LABS: ANION GAP 11.3 meq/L (7-15)
[2022-11-06 09:27] VITALS: BP 86/61; PULSE 81
== END 2022-11-06 09:45 | disposition home or self-care (01) | DRG 720 ==
LOC: LL.ED 08:25 → LL.MS 10:13
PROVIDERS: ADMIT Emergency Medicine; ATTEND Hospitalist
DX: A41.4 Sepsis due to anaerobes (principal); J18.9 Pneumonia, unspecified organism; I48.91 Unspecified atrial fibrillation; F17.210 Nicotine dependence, cigarettes, uncomplicated; E03.9 Hypothyroidism, unspecified; H91.90 Unspecified hearing loss, unspecified ear; H54.7 Unspecified visual loss; I10 Essential (primary) hypertension; Z86.010 Personal history of colon polyps; J44.9 Chronic obstructive pulmonary disease, unspecified; L03.116 Cellulitis of left lower limb; K57.90 Diverticulosis of intestine, part unspecified, without perforation or abscess without bleeding; E87.1 Hypo-osmolality and hyponatremia; L40.0 Psoriasis vulgaris; N52.9 Male erectile dysfunction, unspecified; F10.10 Alcohol abuse, uncomplicated; K59.00 Constipation, unspecified; E78.00 Pure hypercholesterolemia, unspecified; Z20.822 Contact with and (suspected) exposure to COVID-19; Z98.890 Other specified postprocedural states; Z86.73 Personal history of transient ischemic attack (TIA), and cerebral infarction without residual deficits; Z79.01 Long term (current) use of anticoagulants; Z88.1 Allergy status to other antibiotic agents; Z88.8 Allergy status to other drugs, medicaments and biological substances; Z88.2 Allergy status to sulfonamides; Z79.51 Long term (current) use of inhaled steroids; Z90.49 Acquired absence of other specified parts of digestive tract; Z79.899 Other long term (current) drug therapy; Z79.890 Hormone replacement therapy
CPT/HCPCS: 0241U; 36415; 71046; 74177; 80048; 80053; 80202; 81001; 82550; 83605; 84484; 85025; 85027; 85379; 86140; 87040; 93005; 93010; 94640; 96361; 96365; 96375; 97161-GP; 99222; 99232; 99285-25; A9270-GY; J2405; J2543; J3370; J3490; J7030; J7050; J7512; J7613-GY; J7620-GY; Q0177; Q9967

== ENCOUNTER 2022-11-09 10:36 | Emergency (ER) | payer BC, MEDICARE ==
[2022-11-09] MEDS ORDERED: Sodium Chloride 0.9% 10 ML Syringe FLUSH PRN (11:12)
[2022-11-09] MEDS ORDERED: Sodium Chloride 0.9% 1,000 ML IV ONE (11:13)
[2022-11-09 11:33] LABS: BASOPHILS ABSOLUTE AUTO 0.02 K/uL (0.00-0.20); BASOPHILS PERCENT AUTO 0.1 % (0.0-2.0); EOSINOPHILS ABSOLUTE AUTO 0.29 K/uL (0.00-0.50); HEMATOCRIT 36.1 % (39.0-49.0); HEMOGLOBIN 11.7 g/dL (13.1-16.8); LYMPHOCYTES ABSOLUTE AUTO 1.23 K/uL (0.50-3.50); LYMPHOCYTES PERCENT AUTO 8.6 % (10.0-50.0); MEAN CORPUSCULAR HEMOGLOBIN 25.4 pg (28.2-33.3); MEAN CORPUSCULAR HGB CONC 32.4 g/dL (31.7-36.0); MEAN CORPUSCULAR VOLUME 78.3 fL (84.0-98.0); MONOCYTES ABSOLUTE AUTO 1.65 K/uL (0.00-1.00); MONOCYTES PERCENT AUTO 11.5 % (2.0-14.0); NEUTROPHILS ABSOLUTE AUTO 11.12 K/uL (1.40-7.00); NEUTROPHILS PERCENT AUTO 77.8 % (45.0-80.0); PLATELET COUNT,PLT 542 K/uL (150-350); RED BLOOD CELL COUNT 4.61 M/uL (4.33-5.41); WHITE BLOOD CELL COUNT,WBC 14.3 K/uL (4.0-10.2)
[2022-11-09 11:58] LABS: ALBUMIN 3.2 g/dL (3.4-5.0); BILIRUBIN TOTAL 0.3 mg/dL (0.2-1.0); CALCIUM 8.4 mg/dL (8.5-10.1); CARBON DIOXIDE,CO2 28.5 mmol/L (21.0-32.0); ETHANOL BLOOD MEDICAL 0.003 g/dL (0.000-0.080); MAGNESIUM 2.4 mg/dL (1.8-2.4); POTASSIUM,K 3.9 mmol/L (3.5-5.1); PROTEIN TOTAL,TP 6.9 g/dL (6.4-8.2)
[2022-11-09 12:06] LABS: CREATININE 2.56 mg/dL (0.51-1.17); EST CRCL DRUG DOSING (CG) 27.92 mL/min
[2022-11-09 12:07] LABS: ANION GAP 13.4 meq/L (7-15)
[2022-11-09] MEDS: Sodium Chloride 0.9% 1,000 ML IV SCH ×2 (12:56→14:22)
[2022-11-09 13:22] LABS: TSH ULTRASENSITIVE 1.844 mIU/mL (0.358-3.740)
[2022-11-09] MEDS ORDERED: Sodium Chloride 0.9% 1,000 ML IV SCH (14:30)
[2022-11-09 14:39] LABS: APPEARANCE,URINE SLIGHTLY CLOUDY; BILIRUBIN,URINE NEGATIVE (NEGATIVE); COLOR,URINE YELLOW; GLUCOSE,URINE 100 mg/dL (NEGATIVE); KETONES,URINE NEGATIVE (NEGATIVE); LEUKOCYTE ESTERASE,URINE TRACE (NEGATIVE); NITRITE,URINE NEGATIVE (NEGATIVE); OCCULT BLOOD,URINE NEGATIVE (NEGATIVE); PH,URINE 5.5 (5.0-9.0); PROTEIN,URINE NEGATIVE (NEGATIVE); UROBILINOGEN,URINE 0.2 E.U./dL (0.2-1.0)
[2022-11-09 14:48] LABS: RBC,URINE 0-5 /HPF; WBC,URINE 0-5 /HPF
[2022-11-09 14:49] LABS: AMPHETAMINES SCREEN, URINE NEGATIVE (NEGATIVE); BARBITURATE SCREEN,URINE NEGATIVE (NEGATIVE); BENZODIAZEPINES SCREEN,URINE NEGATIVE (NEGATIVE); COCAINE METABOLITES,URINE NEGATIVE (NEGATIVE); EDDP,URINE SCREEN NEGATIVE (NEGATIVE); EPITHELIAL CELLS,URINE MODERATE /LPF; METHAMPHETAMINES SCREEN, URINE NEGATIVE (NEGATIVE); TCA SCREEN,URINE NEGATIVE (NEGATIVE); THC SCREEN,URINE 50 NG/ML POSITIVE (NEGATIVE)
[2022-11-09 14:50] LABS: BACTERIA,URINE FEW /HPF (NONE TO FEW)
[2022-11-09 14:51] LABS: BUPRENORPHINE SCREEN,URINE NEGATIVE (NEGATIVE); OXYCODONE SCREEN,URINE NEGATIVE (NEGATIVE)
[2022-11-09 15:44] LABS: CORONAVIRUS COVID-19 NAA NEGATIVE (NEGATIVE); INFLUENZA A NAA NEGATIVE (NEGATIVE); INFLUENZA B NAA NEGATIVE (NEGATIVE); RESPIRATORY SYNCYTIAL VIR NAA NEGATIVE (NEGATIVE)
[2022-11-09 16:13] VITALS: BP 119/70; PULSE 71
[2022-11-09 16:15] LABS: HEMATOCRIT 34.4 % (39.0-49.0); HEMOGLOBIN 11.1 g/dL (13.1-16.8); MEAN CORPUSCULAR HEMOGLOBIN 25.3 pg (28.2-33.3); MEAN CORPUSCULAR HGB CONC 32.3 g/dL (31.7-36.0); MEAN CORPUSCULAR VOLUME 78.4 fL (84.0-98.0); PLATELET COUNT,PLT 527 K/uL (150-350); RED BLOOD CELL COUNT 4.39 M/uL (4.33-5.41); RED CELL DISTRIBUTION WIDTH 16.8 % (11.2-14.1); WHITE BLOOD CELL COUNT,WBC 12.9 K/uL (4.0-10.2)
[2022-11-09 16:28] LABS: ANION GAP 6.8 meq/L (7-15); CALCIUM 7.9 mg/dL (8.5-10.1); CARBON DIOXIDE,CO2 28.2 mmol/L (21.0-32.0); CREATININE 1.61 mg/dL (0.51-1.17); EST CRCL DRUG DOSING (CG) 44.4 mL/min
== END 2022-11-09 16:47 | disposition left against medical advice (07) ==
LOC: LL.ED 10:36
DX: I95.2 Hypotension due to drugs (principal); T50.905A Adverse effect of unspecified drugs, medicaments and biological substances, initial encounter; N17.9 Acute kidney failure, unspecified; I48.91 Unspecified atrial fibrillation; E78.00 Pure hypercholesterolemia, unspecified; I10 Essential (primary) hypertension; J44.9 Chronic obstructive pulmonary disease, unspecified; E13.9 Other specified diabetes mellitus without complications; E03.9 Hypothyroidism, unspecified; Z88.1 Allergy status to other antibiotic agents; Z91.09 Other allergy status, other than to drugs and biological substances; Z91.048 Other nonmedicinal substance allergy status; Z79.899 Other long term (current) drug therapy; Z79.01 Long term (current) use of anticoagulants; Z72.0 Tobacco use; Z20.822 Contact with and (suspected) exposure to COVID-19
CPT/HCPCS: 0241U; 36415; 71046; 80048; 80053; 80305-QW; 80307; 81001; 83605; 83735; 83880; 84443; 84484; 85025; 85027; 85379; 86140; 87086; 93005; 93010; 96360; 96361; 99284; 99285-25; J7030

== ENCOUNTER 2022-11-11 01:42 | Emergency (ER) | payer BC, MEDICARE ==
[2022-11-11] MEDS ORDERED: Albuterol/Ipratropium 3.0-0.5 MG/3 ML Neb Soln NEB ONE (02:05)
[2022-11-11] MEDS ORDERED: Sodium Chloride 0.9% 10 ML Syringe FLUSH PRN (02:07)
[2022-11-11 02:34] LABS: BASOPHILS ABSOLUTE AUTO 0.04 K/uL (0.00-0.20); BASOPHILS PERCENT AUTO 0.4 % (0.0-2.0); EOSINOPHILS ABSOLUTE AUTO 0.42 K/uL (0.00-0.50); EOSINOPHILS PERCENT AUTO 4.4 % (0.0-5.0); HEMATOCRIT 34.3 % (39.0-49.0); LYMPHOCYTES ABSOLUTE AUTO 1.25 K/uL (0.50-3.50); LYMPHOCYTES PERCENT AUTO 13.1 % (10.0-50.0); MEAN CORPUSCULAR HEMOGLOBIN 25.5 pg (28.2-33.3); MEAN CORPUSCULAR HGB CONC 32.1 g/dL (31.7-36.0); MEAN CORPUSCULAR VOLUME 79.6 fL (84.0-98.0); MONOCYTES ABSOLUTE AUTO 1.11 K/uL (0.00-1.00); MONOCYTES PERCENT AUTO 11.7 % (2.0-14.0); NEUTROPHILS ABSOLUTE AUTO 6.69 K/uL (1.40-7.00); NEUTROPHILS PERCENT AUTO 70.4 % (45.0-80.0); PLATELET COUNT,PLT 526 K/uL (150-350); RED BLOOD CELL COUNT 4.31 M/uL (4.33-5.41); RED CELL DISTRIBUTION WIDTH 17.1 % (11.2-14.1); WHITE BLOOD CELL COUNT,WBC 9.5 K/uL (4.0-10.2)
[2022-11-11 02:56] LABS: ALBUMIN 2.8 g/dL (3.4-5.0); BILIRUBIN TOTAL 0.2 mg/dL (0.2-1.0); CALCIUM 8.5 mg/dL (8.5-10.1); CREATININE 1.04 mg/dL (0.51-1.17); EST CRCL DRUG DOSING (CG) 67.6 mL/min; MAGNESIUM 1.9 mg/dL (1.8-2.4); POTASSIUM,K 4.4 mmol/L (3.5-5.1); PROTEIN TOTAL,TP 6.4 g/dL (6.4-8.2)
[2022-11-11 02:59] VITALS: PULSE 81
[2022-11-11 02:59] LABS: LACTIC ACID 1.6 mmol/L (0.4-2.0)
[2022-11-11 03:15] VITALS: BP 132/62
== END 2022-11-11 03:25 | disposition home or self-care (01) ==
LOC: LL.ED 01:42 → SUPCPDRO 01:42 → LL.ED 03:25
DX: J44.9 Chronic obstructive pulmonary disease, unspecified (principal); I48.91 Unspecified atrial fibrillation; E78.00 Pure hypercholesterolemia, unspecified; I10 Essential (primary) hypertension; E03.9 Hypothyroidism, unspecified; Z72.0 Tobacco use; Z86.73 Personal history of transient ischemic attack (TIA), and cerebral infarction without residual deficits; Z88.8 Allergy status to other drugs, medicaments and biological substances; Z88.1 Allergy status to other antibiotic agents; Z91.09 Other allergy status, other than to drugs and biological substances; Z91.048 Other nonmedicinal substance allergy status; Z79.899 Other long term (current) drug therapy; Z79.01 Long term (current) use of anticoagulants
CPT/HCPCS: 36415; 71046; 80053; 83605; 83735; 84484; 85025; 93005; 93010; 94640; 99283; 99285; J7620-GY

== ENCOUNTER 2023-02-01 16:22 | Emergency (ER) | payer BC, MEDICARE ==
[2023-02-01 16:42] VITALS: BP 139/66; PULSE 86
[2023-02-01 17:00] LABS: BASOPHILS ABSOLUTE AUTO 0.03 K/uL (0.00-0.20); BASOPHILS PERCENT AUTO 0.3 % (0.0-2.0); EOSINOPHILS ABSOLUTE AUTO 1.13 K/uL (0.00-0.50); EOSINOPHILS PERCENT AUTO 11.7 % (0.0-5.0); HEMATOCRIT 36.8 % (39.0-49.0); HEMOGLOBIN 11.9 g/dL (13.1-16.8); LYMPHOCYTES ABSOLUTE AUTO 1.69 K/uL (0.50-3.50); LYMPHOCYTES PERCENT AUTO 17.5 % (10.0-50.0); MEAN CORPUSCULAR HEMOGLOBIN 26.3 pg (28.2-33.3); MEAN CORPUSCULAR HGB CONC 32.3 g/dL (31.7-36.0); MEAN CORPUSCULAR VOLUME 81.4 fL (84.0-98.0); MONOCYTES ABSOLUTE AUTO 0.91 K/uL (0.00-1.00); MONOCYTES PERCENT AUTO 9.4 % (2.0-14.0); NEUTROPHILS PERCENT AUTO 61.1 % (45.0-80.0); PLATELET COUNT,PLT 435 K/uL (150-350); RED BLOOD CELL COUNT 4.52 M/uL (4.33-5.41); RED CELL DISTRIBUTION WIDTH 20.3 % (11.2-14.1); WHITE BLOOD CELL COUNT,WBC 9.7 K/uL (4.0-10.2)
[2023-02-01 17:20] LABS: ALBUMIN 2.9 g/dL (3.4-5.0); ANION GAP 9.1 meq/L (7-15); BILIRUBIN TOTAL 0.5 mg/dL (0.2-1.0); CALCIUM 8.6 mg/dL (8.5-10.1); CARBON DIOXIDE,CO2 28.9 mmol/L (21.0-32.0); CREATININE 1.14 mg/dL (0.51-1.17); EST CRCL DRUG DOSING (CG) 61.67 mL/min; POTASSIUM,K 4.3 mmol/L (3.5-5.1); PROTEIN TOTAL,TP 7.4 g/dL (6.4-8.2)
[2023-02-01] MEDS: Sodium Chloride 0.9% 1,000 ML IV ONE (17:41)
[2023-02-01] MEDS: cefTRIAXone 2 GM in Sodium Chloride 0.9% 100 ML IV ONE (17:45)
[2023-02-01] MEDS: Sodium Chloride 0.9% 10 ML Syringe FLUSH PRN (17:47)
[2023-02-01] MEDS: Take Home: Cephalexin 500 MG Cap, 6 Cap Pack PO ONE (18:12)
[2023-02-01] MEDS: [UNRECOGNIZED DRUG - OTHER] TOP ONE (18:12)
== END 2023-02-01 18:28 | disposition home or self-care (01) ==
LOC: LL.ED 16:22
DX: L03.115 Cellulitis of right lower limb (principal); L03.116 Cellulitis of left lower limb; I48.91 Unspecified atrial fibrillation; I10 Essential (primary) hypertension; E78.00 Pure hypercholesterolemia, unspecified; J44.9 Chronic obstructive pulmonary disease, unspecified; E11.9 Type 2 diabetes mellitus without complications; E03.9 Hypothyroidism, unspecified; F17.210 Nicotine dependence, cigarettes, uncomplicated; Z88.8 Allergy status to other drugs, medicaments and biological substances; Z88.1 Allergy status to other antibiotic agents; Z91.048 Other nonmedicinal substance allergy status; Z88.2 Allergy status to sulfonamides; Z79.899 Other long term (current) drug therapy; Z79.01 Long term (current) use of anticoagulants
CPT/HCPCS: 36415; 80053; 83605; 85025; 96365; 99283-25; 99284; A9270-GY; J0696; J3490

== ENCOUNTER 2023-07-06 11:55 | Emergency (ER) | payer OTHER, BC, MEDICARE ==
[2023-07-06 12:32] LABS: BASOPHILS ABSOLUTE AUTO 0.01 K/uL (0.00-0.20); BASOPHILS PERCENT AUTO 0.1 % (0.0-2.0); EOSINOPHILS ABSOLUTE AUTO 0.06 K/uL (0.00-0.50); EOSINOPHILS PERCENT AUTO 0.7 % (0.0-5.0); HEMATOCRIT 43.5 % (39.0-49.0); HEMOGLOBIN 15.1 g/dL (13.1-16.8); LYMPHOCYTES ABSOLUTE AUTO 1.71 K/uL (0.50-3.50); LYMPHOCYTES PERCENT AUTO 21.2 % (10.0-50.0); MEAN CORPUSCULAR HEMOGLOBIN 30.1 pg (28.2-33.3); MEAN CORPUSCULAR HGB CONC 34.7 g/dL (31.7-36.0); MEAN CORPUSCULAR VOLUME 86.8 fL (84.0-98.0); MONOCYTES ABSOLUTE AUTO 0.94 K/uL (0.00-1.00); MONOCYTES PERCENT AUTO 11.6 % (2.0-14.0); NEUTROPHILS ABSOLUTE AUTO 5.36 K/uL (1.40-7.00); NEUTROPHILS PERCENT AUTO 66.4 % (45.0-80.0); PLATELET COUNT,PLT 349 K/uL (150-350); RED BLOOD CELL COUNT 5.01 M/uL (4.33-5.41); WHITE BLOOD CELL COUNT,WBC 8.1 K/uL (4.0-10.2)
[2023-07-06 12:45] LABS: ALBUMIN 3.7 g/dL (3.4-5.0); BILIRUBIN TOTAL 0.5 mg/dL (0.2-1.0); CALCIUM 8.9 mg/dL (8.5-10.1); CARBON DIOXIDE,CO2 31.2 mmol/L (21.0-32.0); CREATININE 0.96 mg/dL (0.51-1.17); EST CRCL DRUG DOSING (CG) 70.77 mL/min; POTASSIUM,K 3.6 mmol/L (3.5-5.1); PROTEIN TOTAL,TP 7.7 g/dL (6.4-8.2)
[2023-07-06 12:46] LABS: ANION GAP 11.4 meq/L (7-15)
[2023-07-06] MEDS ORDERED: Sodium Chloride 3% 500 ML IV SCH (13:15)
[2023-07-06] MEDS: traMADol 50 MG Tab PO ONE ×2 (13:38→13:43)
[2023-07-06] MEDS: Acetaminophen 325 MG Tab PO ONE ×2 (13:39→13:43)
[2023-07-06] MEDS ORDERED: oxyCODONE 5 MG Tab PO ONE (13:47)
[2023-07-06] MEDS ORDERED: Bacitracin Oint 1 GM U/D Packet TOP ONE (15:28)
[2023-07-06 16:12] LABS: APPEARANCE,URINE CLEAR; BILIRUBIN,URINE NEGATIVE (NEGATIVE); COLOR,URINE YELLOW; GLUCOSE,URINE NEGATIVE (NEGATIVE); KETONES,URINE 15 mg/dL (NEGATIVE); LEUKOCYTE ESTERASE,URINE NEGATIVE (NEGATIVE); NITRITE,URINE NEGATIVE (NEGATIVE); OCCULT BLOOD,URINE NEGATIVE (NEGATIVE); PROTEIN,URINE NEGATIVE (NEGATIVE); UROBILINOGEN,URINE 0.2 E.U./dL (0.2-1.0)
[2023-07-06 16:17] LABS: CALCIUM 8.8 mg/dL (8.5-10.1); CARBON DIOXIDE,CO2 29.7 mmol/L (21.0-32.0); CREATININE 0.74 mg/dL (0.51-1.17); EST CRCL DRUG DOSING (CG) 91.81 mL/min; POTASSIUM,K 3.8 mmol/L (3.5-5.1)
[2023-07-06 16:18] LABS: ANION GAP 12.1 meq/L (7-15)
[2023-07-06] MEDS ORDERED: Diphtheria,Pertussis(Acell),Tetanus Vaccine 0.5 ML Syringe IM ONE (16:34)
[2023-07-06] MEDS ORDERED: Sodium Chloride 1 GM Tab PO ONE (16:43)
[2023-07-06] MEDS ORDERED: Lidocaine 1% 5 ML VIAL INJECT ONE (16:47)
[2023-07-06] MEDS ORDERED: Bacitracin Oint 1 GM U/D Packet ONE (17:39)
[2023-07-06 23:27] VITALS: BP 152/72; PULSE 79
== END 2023-07-06 17:45 | disposition home or self-care (01) ==
LOC: LL.ED 11:55
DX: S32.020A Wedge compression fracture of second lumbar vertebra, initial encounter for closed fracture (principal); S51.812A Laceration without foreign body of left forearm, initial encounter; E87.1 Hypo-osmolality and hyponatremia; I10 Essential (primary) hypertension; E78.00 Pure hypercholesterolemia, unspecified; J44.9 Chronic obstructive pulmonary disease, unspecified; E11.9 Type 2 diabetes mellitus without complications; E03.9 Hypothyroidism, unspecified; Z90.49 Acquired absence of other specified parts of digestive tract; V89.2XXA Person injured in unspecified motor-vehicle accident, traffic, initial encounter; Z88.2 Allergy status to sulfonamides; Z88.1 Allergy status to other antibiotic agents; Z88.8 Allergy status to other drugs, medicaments and biological substances; Z91.048 Other nonmedicinal substance allergy status; Z79.899 Other long term (current) drug therapy
CPT/HCPCS: 12002; 36415; 70450; 71045; 72040; 72131; 80048; 80053; 80307; 81003; 85025; 90471; 90715; 96360; 96361; 99284; A9270; J7040; J3490